=== PATIENT | male | born 1945 | race Two or more races ===

== ENCOUNTER 2021-04-18 13:33 | Inpatient (IN) | payer MEDICARE, MEDICAID, OTHER ==
[~2021-04-18] VITALS: Ht 175.3 cm; Wt 49.0 kg
[~2021-04-18 13:33] MED LIST: FINA5TAB11 PO; TAMS-11 PO
[2021-04-18] MEDS ORDERED: MORPHINE SULFATE 4 MG/ML CPJ (NOT FOR IM USE) IV STA (13:49)
[2021-04-18] MEDS ORDERED: SODIUM CHLORIDE 0.9% 1,000 ML IV ONE ×3 (15:30→18:15)
[2021-04-18 16:21] LABS: CHLORIDE 105 mEq/L (98-107)
[2021-04-18] MEDS ORDERED: INSULIN REGULAR (HUMULIN R) 300UNITS/3ML VIAL IV ONE (17:30)
[2021-04-18] MEDS ORDERED: DEXTROSE 50% WATER 50ML SYRINGE IV ONE (17:30)
[2021-04-18] MEDS ORDERED: HALOPERIDOL LACTATE 5MG/ML VIAL IM ONE (18:00)
[2021-04-18] MEDS ORDERED: MORPHINE SULFATE 4 MG/ML CPJ (NOT FOR IM USE) IV ONE (18:45)
[2021-04-18] MEDS ORDERED: HYDROMORPHONE HCL/PF 2MG/ML CPJ IV ONE (19:15)
[2021-04-18] MEDS ORDERED: NOREPINEPHRINE 8MG/250ML PMX 250 ML IV ONE (20:15)
[2021-04-18] MEDS ORDERED: PIPERACILLIN/TAZ 3.375G PREMIX 50 ML IV NR (20:15)
[2021-04-18] MEDS ORDERED: PIPERACILLIN/TAZOBACTAM 3.375GM/50ML PREMIX IV ONE (20:15)
[2021-04-18 21:42] LABS: HEMATOCRIT. 40.7 % (42.0-52.0); HEMOGLOBIN. 12.9 g/dL (14.0-18.0); MEAN CORPUSCULAR HEMOGLOBIN 32.3 pg (28.0-32.0); MEAN CORPUSCULAR VOLUME 101.9 fL (80.0-94.0); MEAN PLATELET VOLUME 7.9 fl (7.4-10.4); PLATELET 337 x1000/uL (130-400); RED CELL DISTRIBUTION WIDTH 15.9 % (11.6-14.6)
[2021-04-18] MEDS ORDERED: DOCUSATE SODIUM 100MG CAPSULE PO PRN (21:45)
[2021-04-18] MEDS ORDERED: DEXT 5%/0.45% NACL 1000ML 1,000 ML IV SCH (21:45)
[2021-04-18] MEDS ORDERED: IPRATROPIUM/ALBUTEROL 0.5-3(2.5)MG/3ML NEB HHN PRN (21:45)
[2021-04-18] MEDS ORDERED: CLONIDINE 0.1MG TABLET PO PRN (21:45)
[2021-04-18] MEDS ORDERED: PHENYLEPHRINE 100 MG in DEXT 5% WATER 240 ML IV PRN (21:45)
[2021-04-18] MEDS ORDERED: DIPHENHYDRAMINE 50MG/ML VIAL IV PRN (21:45)
[2021-04-18] MEDS ORDERED: ONDANSETRON HCL 4MG/2ML INJ IV PRN (21:45)
[2021-04-18] MEDS ORDERED: GUAIFENESIN 200MG/10ML SUGAR FREE UDC PO PRN (21:45)
[2021-04-18] MEDS ORDERED: ACETAMINOPHEN 325MG TABLET PO PRN (21:45)
[2021-04-18] MEDS ORDERED: LORAZEPAM 2MG/ML CPJ IV PRN (21:45)
[2021-04-18] MEDS ORDERED: PIPERACILLIN/TAZ 3.375G PREMIX 50 ML IV SCH (21:45)
[2021-04-18] MEDS ORDERED: HYDRALAZINE 20MG/ML VIAL IV PRN (21:45)
[2021-04-18] MEDS ORDERED: NOREPINEPHRINE 8MG/250ML PMX 250 ML IV PRN (21:45)
[2021-04-18] MEDS ORDERED: MAGNESIUM/ALUMINUM HYDROXIDE/SIMETHICONE 30ML UDC PO PRN (21:45)
[2021-04-18] MEDS ORDERED: HYDROCODONE/ACETAMINOPHEN 5/325MG TABLET PO PRN (21:45)
[2021-04-18] MEDS ORDERED: SODIUM CHLORIDE 0.9% INJ 3ML FLUSH IVF SCH (22:00)
[2021-04-18 22:13] LABS: PLATELET ESTIMATE NORMAL
[2021-04-18 23:34] VITALS: BP 160/60
[2021-04-18] MEDS: ENOXAPARIN 30MG/0.3ML SYR SUBCUT SCH (23:35)
[2021-04-18 23:49] VITALS: BP 168/88
[2021-04-18 23:55] VITALS: BP 160/60
[2021-04-19] VITALS (95 sets, daily range): BP systolic 74–195; BP diastolic 30–107
[2021-04-19] MEDS: MORPHINE SULFATE 2 MG/ML CPJ (NOT FOR IM USE) IV PRN ×3 (00:23→21:39)
[2021-04-19] MEDS: PHENYLEPHRINE 100 MG in DEXT 5% WATER 250 ML IV PRN (00:50)
[2021-04-19 06:05] LABS: HEMOGLOBIN. 13.3 g/dL (14.0-18.0); MEAN CORPUSCULAR HEMOGLOBIN 31.9 pg (28.0-32.0); MEAN CORPUSCULAR VOLUME 100.2 fL (80.0-94.0); RED BLOOD CELL COUNT 4.19 mill/uL (4.7-6.1); RED CELL DISTRIBUTION WIDTH 16.1 % (11.6-14.6)
[2021-04-19 06:11] LABS: CHLORIDE 111 mEq/L (98-107)
[2021-04-19] MEDS ORDERED: PIPERACILLIN/TAZOBACTAM 2.25G in DEXTROSE 5% WATER 50ML IV SCH (07:00)
[2021-04-19] MEDS ORDERED: DEXTROSE 50% WATER 50ML SYRINGE IV NR (07:30)
[2021-04-19] MEDS ORDERED: INSULIN REGULAR (HUMULIN R) 300UNITS/3ML VIAL IV NR (07:30)
[2021-04-19] MEDS ORDERED: SODIUM BICARBONATE 8.4% 1 MEQ/ML 50ML SYR IV NR (07:30)
[2021-04-19] MEDS ORDERED: NALOXONE HCL 0.4MG/ML VIAL IV PRN (08:00)
[2021-04-19] MEDS: PIPERACILLIN/TAZOBACTAM 2.25G in DEXTROSE 5% WATER 50ML IV SCH ×2 (08:11→15:42)
[2021-04-19 08:58] LABS: PLATELET 332 x1000/uL (130-400)
[2021-04-19 09:16] LABS: BG BASE EXCESS -6.1 mmol/L (-2.0-2.0); BG HCO3 ACT 19.1 mmol/L (22.0-26.0); BG METHEMOGLOBIN 0.3 % (0.0-1.5); BG OXYGEN SATURATION 95.9 % (92.0-98.5); BG OXYHEMOGLOBIN 93.7 % (94.0-97.0); BG PCO2 36.9 mmHg (35.0-45.0); BG PH 7.332 (7.350-7.450); BG SAMPLE SITE LEFT RADIAL; BG TOTAL HEMOGLOBIN 12.8 g/dL (12.0-18.0); BG VENT MODE NASAL CANNULA
[2021-04-19 10:06] LABS: HDL CHOLESTEROL 23 mg/dL (40-59)
[2021-04-19 10:14] LABS: LDL CHOLESTEROL 6 mg/dL (5-100)
[2021-04-19 12:42] LABS: CHLORIDE 113 mEq/L (98-107)
[2021-04-19 12:51] LABS: CREATINE KINASE 219 IU/L (39-308)
[2021-04-19 12:54] LABS: CREATINE KINASE MB FRACTION 5.6 ng/mL (0.5-3.6)
[2021-04-19] MEDS: DEXT 5%/0.9% NACL 1,000 ML IV SCH ×2 (13:01→20:16)
[2021-04-19 19:57] LABS: KETONES URINE NEGATIVE (NEGATIVE); LEUKOCYTE ESTERASE URINE 2+ (NEGATIVE); NITRITE URINE NEGATIVE (NEGATIVE); OCCULT BLOOD URINE 3+ (NEGATIVE); PH URINE 7.5 (4.5-8.0); PROTEIN URINE NEGATIVE (NEGATIVE); SPECIFIC GRAVITY URINE 1.008 (1.005-1.030); UROBILINOGEN URINE 0.2 E.U./dL (0.2-1.0)
[2021-04-19 19:58] LABS: CLARITY URINE CLOUDY (CLEAR); COLOR URINE RED (YELLOW)
[2021-04-19] MEDS: ENOXAPARIN 30MG/0.3ML SYR SUBCUT SCH (21:37)
[2021-04-19 22:00] LABS: PROSTRATE SPECIFIC AG TOTAL 31.52 ng/mL (0.0-4.0)
[2021-04-19 22:01] LABS: CARCINO EMBRYONIC ANTIGEN 2.7 ng/ml
[2021-04-19 22:42] LABS: CREATINE KINASE 188 IU/L (39-308)
[2021-04-19 22:43] LABS: CREATINE KINASE MB FRACTION 5.3 ng/mL (0.5-3.6)
[2021-04-20] VITALS (101 sets, daily range): BP systolic 30–151; BP diastolic 17–107
[2021-04-20] MEDS: PIPERACILLIN/TAZOBACTAM 2.25G in DEXTROSE 5% WATER 50ML IV SCH ×4 (00:41→20:59)
[2021-04-20] MEDS: DEXT 5%/0.9% NACL 1,000 ML IV SCH ×4 (03:12→21:35)
[2021-04-20 05:42] LABS: HEMATOCRIT. 33.9 % (42.0-52.0); HEMOGLOBIN. 10.9 g/dL (14.0-18.0); MEAN CORPUSCULAR HEMOGLOBIN 31.7 pg (28.0-32.0); MEAN CORPUSCULAR VOLUME 98.8 fL (80.0-94.0); MEAN PLATELET VOLUME 8.4 fl (7.4-10.4); PLATELET 252 x1000/uL (130-400); RED BLOOD CELL COUNT 3.43 mill/uL (4.7-6.1); RED CELL DISTRIBUTION WIDTH 15.7 % (11.6-14.6)
[2021-04-20 05:46] LABS: CHLORIDE 118 mEq/L (98-107)
[2021-04-20 05:56] LABS: PHOSPHORUS 2.5 mg/dL (2.5-4.9)
[2021-04-20 05:57] LABS: CREATINE KINASE 216 IU/L (39-308)
[2021-04-20 06:00] LABS: CREATINE KINASE MB FRACTION 5.6 ng/mL (0.5-3.6)
[2021-04-20] MEDS: MORPHINE SULFATE 2 MG/ML CPJ (NOT FOR IM USE) IV PRN ×2 (10:04→19:23)
[2021-04-20 10:13] LABS: PLATELET ESTIMATE NORMAL
[2021-04-20] MEDS: PHENYLEPHRINE 100 MG in DEXT 5% WATER 250 ML IV PRN (11:56)
[2021-04-20] MEDS ORDERED: SODIUM CHLORIDE 0.9% 500 ML IV ONE (14:00)
[2021-04-20] MEDS: NOREPINEPHRINE 8 MG in DEXTROSE 5% WATER 250 ML IV PRN (17:55)
[2021-04-20] MEDS: VASOPRESSIN 20 UNIT in SODIUM CHLORIDE 0.9% 99 ML IV PRN (19:42)
[2021-04-20 20:22] LABS: BG BASE EXCESS -5.4 mmol/L (-2.0-2.0); BG CARBOXYHEMOGLOBIN 1.7 % (0.5-1.5); BG DEOXYHEMOGLOBIN 0.1 % (0.0-5.0); BG FRACTION INSPIRED OXYGEN 100; BG HCO3 ACT 20.3 mmol/L (22.0-26.0); BG METHEMOGLOBIN 0.2 % (0.0-1.5); BG OXYGEN SATURATION 99.9 % (92.0-98.5); BG PCO2 40.4 mmHg (35.0-45.0); BG PH 7.319 (7.350-7.450); BG PO2 217.8 mmHg (75.0-100.0); BG SAMPLE SITE LEFT FEMORAL; BG VENT MODE MASK - SIMPLE
[2021-04-20] MEDS: ENOXAPARIN 30MG/0.3ML SYR SUBCUT SCH (21:00)
[2021-04-20] MEDS ORDERED: SODIUM CHLORIDE 0.9% 500 ML IV NR (23:00)
[2021-04-20] MEDS ORDERED: DIGOXIN 500MCG/2ML AMP IV NR (23:00)
[2021-04-21] VITALS (100 sets, daily range): BP systolic 55–192; BP diastolic 17–135
[2021-04-21] MEDS: MORPHINE SULFATE 2 MG/ML CPJ (NOT FOR IM USE) IV PRN ×2 (00:44→06:12)
[2021-04-21] MEDS: PHENYLEPHRINE 100 MG in DEXT 5% WATER 250 ML IV PRN ×2 (01:16→22:42)
[2021-04-21] MEDS: DEXT 5%/0.9% NACL 1,000 ML IV SCH ×2 (01:16→09:11)
[2021-04-21] MEDS: PIPERACILLIN/TAZOBACTAM 2.25G in DEXTROSE 5% WATER 50ML IV SCH ×4 (02:31→22:22)
[2021-04-21] MEDS: VASOPRESSIN 20 UNIT in SODIUM CHLORIDE 0.9% 99 ML IV PRN (02:36)
[2021-04-21 05:44] LABS: HEMATOCRIT. 31.8 % (42.0-52.0); HEMOGLOBIN. 9.8 g/dL (14.0-18.0); MEAN CORPUSCULAR VOLUME 103.8 fL (80.0-94.0); MEAN PLATELET VOLUME 8.8 fl (7.4-10.4); PLATELET 201 x1000/uL (130-400); RED BLOOD CELL COUNT 3.06 mill/uL (4.7-6.1); RED CELL DISTRIBUTION WIDTH 16.4 % (11.6-14.6)
[2021-04-21 05:50] LABS: CHLORIDE 122 mEq/L (98-107)
[2021-04-21] MEDS ORDERED: SODIUM BICARBONATE 8.4% 1 MEQ/ML 50ML SYR IV NR (07:30)
[2021-04-21] MEDS ORDERED: MIDAZOLAM HCL 100 MG in SODIUM CHLORIDE 0.9% 80 ML IV PRN (07:45)
[2021-04-21] MEDS ORDERED: VECURONIUM BROMIDE 10 MG/VIAL IV ONE (08:07)
[2021-04-21] MEDS ORDERED: ETOMIDATE 2MG/ML 10ML VIAL IV ONE (08:07)
[2021-04-21 09:44] LABS: INR 1.2; PROTHROMBIN TIME 12.8 sec (9.6-11.0)
[2021-04-21] MEDS ORDERED: DIPHENHYDRAMINE 50MG/ML VIAL IV NR (10:00)
[2021-04-21] MEDS ORDERED: VANCOMYCIN 1 G PREMIX 200 ML IV SCH (10:00)
[2021-04-21] MEDS ORDERED: METHYLPREDNISOLONE SOD SUCC 40 MG/ML VIAL IV SCH ×2 (11:15→20:00)
[2021-04-21] MEDS: FENTANYL CITRATE/PF 2,500 MCG in SODIUM CHLORIDE 0.9% 200 ML IV PRN (11:54)
[2021-04-21 12:15] LABS: BG BASE EXCESS -6.8 mmol/L (-2.0-2.0); BG CARBOXYHEMOGLOBIN 0.8 % (0.5-1.5); BG DEOXYHEMOGLOBIN 0.4 % (0.0-5.0); BG FRACTION INSPIRED OXYGEN 100; BG HCO3 ACT 18.5 mmol/L (22.0-26.0); BG METHEMOGLOBIN 0.3 % (0.0-1.5); BG OXYGEN SATURATION 99.6 % (92.0-98.5); BG OXYHEMOGLOBIN 98.5 % (94.0-97.0); BG PCO2 36.4 mmHg (35.0-45.0); BG PH 7.324 (7.350-7.450); BG PO2 355.3 mmHg (75.0-100.0); BG SAMPLE SITE RIGHT RADIAL; BG TOTAL HEMOGLOBIN 10.7 g/dL (12.0-18.0); BG VENT MODE VENT - AC
[2021-04-21] MEDS: DEXTROSE 5% WATER 1,000 ML IV SCH (15:15)
[2021-04-21] MEDS: IPRATROPIUM/ALBUTEROL 0.5-3(2.5)MG/3ML NEB HHN SCH ×2 (17:00→19:59)
[2021-04-21 18:41] LABS: PLATELET ESTIMATE NORMAL
[2021-04-21] MEDS: VANCOMYCIN 750 MG PREMIX 150 ML IV SCH (20:47)
[2021-04-21] MEDS: ENOXAPARIN 30MG/0.3ML SYR SUBCUT SCH (22:05)
[2021-04-22] VITALS (97 sets, daily range): BP systolic 64–131; BP diastolic 16–95
[2021-04-22] MEDS: PHENYLEPHRINE 100 MG in DEXT 5% WATER 250 ML IV PRN ×2 (01:30→16:56)
[2021-04-22] MEDS: IPRATROPIUM/ALBUTEROL 0.5-3(2.5)MG/3ML NEB HHN SCH ×4 (01:37→20:17)
[2021-04-22] MEDS ORDERED: METHYLPREDNISOLONE SOD SUCC 40 MG/ML VIAL IV SCH ×2 (02:00→08:00)
[2021-04-22] MEDS: PIPERACILLIN/TAZOBACTAM 2.25G in DEXTROSE 5% WATER 50ML IV SCH ×4 (03:47→20:39)
[2021-04-22] MEDS: DEXTROSE 5% WATER 1,000 ML IV SCH ×2 (04:00→15:43)
[2021-04-22 06:08] LABS: HEMATOCRIT. 31.1 % (42.0-52.0); HEMOGLOBIN. 9.9 g/dL (14.0-18.0); MEAN CORPUSCULAR HEMOGLOBIN 31.5 pg (28.0-32.0); MEAN CORPUSCULAR VOLUME 99.2 fL (80.0-94.0); MEAN PLATELET VOLUME 9.9 fl (7.4-10.4); PLATELET 153 x1000/uL (130-400); RED BLOOD CELL COUNT 3.14 mill/uL (4.7-6.1); RED CELL DISTRIBUTION WIDTH 15.8 % (11.6-14.6)
[2021-04-22 06:17] LABS: CHLORIDE 115 mEq/L (98-107)
[2021-04-22] MEDS ORDERED: DIPHENHYDRAMINE 50MG/ML VIAL IV SCH (08:00)
[2021-04-22] MEDS: VANCOMYCIN 750 MG PREMIX 150 ML IV SCH ×2 (08:02→20:59)
[2021-04-22 08:07] LABS: BG BASE EXCESS -3.7 mmol/L (-2.0-2.0); BG CARBOXYHEMOGLOBIN 1.9 % (0.5-1.5); BG DEOXYHEMOGLOBIN 1.2 % (0.0-5.0); BG METHEMOGLOBIN 0.2 % (0.0-1.5); BG OXYGEN SATURATION 98.8 % (92.0-98.5); BG OXYHEMOGLOBIN 96.7 % (94.0-97.0); BG PCO2 36.8 mmHg (35.0-45.0); BG PH 7.374 (7.350-7.450); BG PO2 123.2 mmHg (75.0-100.0); BG SAMPLE SITE RIGHT RADIAL; BG VENT MODE VENT - AC
[2021-04-22] MEDS ORDERED: IOHEXOL-300 100 ML BOTTLE ONE (09:49)
[2021-04-22] MEDS: NOREPINEPHRINE 8 MG in DEXTROSE 5% WATER 250 ML IV PRN (11:33)
[2021-04-22 11:51] LABS: NUCLEATED RED BLOOD CELLS 1 /100 WBC
[2021-04-22 11:52] LABS: PLATELET ESTIMATE NORMAL
[2021-04-22] MEDS ORDERED: ALBUMIN HUMAN 25GM/100ML (25%) IV ONE (13:22)
[2021-04-22] MEDS ORDERED: CALCIUM CHLORIDE 1GM/10ML SYR IV ONE (13:23)
[2021-04-22] MEDS ORDERED: ALBUMIN HUMAN 12.5GM/50ML (25%) IV ONE (13:24)
[2021-04-22] MEDS ORDERED: BACITRACIN/POLYMYXIN B SULFATE OINT 28.35GM TOP ONE (13:31)
[2021-04-22] MEDS ORDERED: METHYLENE BLUE 50 MG/10 ML AMP IV ONE (13:41)
[2021-04-22] MEDS: VASOPRESSIN 20 UNIT in SODIUM CHLORIDE 0.9% 99 ML IV PRN (21:36)
[2021-04-22] MEDS: ENOXAPARIN 30MG/0.3ML SYR SUBCUT SCH (22:06)
[2021-04-23] VITALS (100 sets, daily range): BP systolic 31–131; BP diastolic 14–104
[2021-04-23] MEDS: IPRATROPIUM/ALBUTEROL 0.5-3(2.5)MG/3ML NEB HHN SCH ×4 (00:44→19:53)
[2021-04-23] MEDS: PHENYLEPHRINE 100 MG in DEXT 5% WATER 250 ML IV PRN ×3 (02:42→21:25)
[2021-04-23] MEDS: PIPERACILLIN/TAZOBACTAM 2.25G in DEXTROSE 5% WATER 50ML IV SCH ×4 (02:49→20:44)
[2021-04-23] MEDS: FENTANYL CITRATE/PF 2,500 MCG in SODIUM CHLORIDE 0.9% 200 ML IV PRN (04:24)
[2021-04-23] MEDS: DEXTROSE 5% WATER 1,000 ML IV SCH (04:25)
[2021-04-23] MEDS: VASOPRESSIN 20 UNIT in SODIUM CHLORIDE 0.9% 99 ML IV PRN ×3 (04:35→23:43)
[2021-04-23 05:44] LABS: HEMATOCRIT. 30.4 % (42.0-52.0); HEMOGLOBIN. 9.3 g/dL (14.0-18.0); MEAN CORPUSCULAR HEMOGLOBIN 31.1 pg (28.0-32.0); MEAN CORPUSCULAR VOLUME 101.8 fL (80.0-94.0); MEAN PLATELET VOLUME 10.9 fl (7.4-10.4); PLATELET 105 x1000/uL (130-400); RED BLOOD CELL COUNT 2.99 mill/uL (4.7-6.1); RED CELL DISTRIBUTION WIDTH 16.3 % (11.6-14.6)
[2021-04-23 09:38] LABS: BG BASE EXCESS -8.8 mmol/L (-2.0-2.0); BG CARBOXYHEMOGLOBIN 2.1 % (0.5-1.5); BG DEOXYHEMOGLOBIN 2.6 % (0.0-5.0); BG FRACTION INSPIRED OXYGEN 30; BG HCO3 ACT 16.2 mmol/L (22.0-26.0); BG METHEMOGLOBIN 0.2 % (0.0-1.5); BG OXYGEN SATURATION 97.3 % (92.0-98.5); BG OXYHEMOGLOBIN 95.1 % (94.0-97.0); BG PCO2 31.4 mmHg (35.0-45.0); BG PO2 97.4 mmHg (75.0-100.0); BG SAMPLE SITE RIGHT RADIAL; BG TOTAL HEMOGLOBIN 9.5 g/dL (12.0-18.0); BG VENT MODE VENT - AC
[2021-04-23] MEDS ORDERED: SODIUM BICARBONATE 8.4% 1 MEQ/ML 50ML SYR IV NR (11:00)
[2021-04-23] MEDS ORDERED: SODIUM CHLORIDE 0.9% 500 ML IV ONE (11:30)
[2021-04-23 16:54] LABS: NUCLEATED RED BLOOD CELLS 2 /100 WBC; PLATELET ESTIMATE DECREASED
[2021-04-23] MEDS: NOREPINEPHRINE 8 MG in DEXTROSE 5% WATER 250 ML IV PRN (21:17)
[2021-04-24] VITALS (108 sets, daily range): BP systolic 30–158; BP diastolic 13–80
[2021-04-24] MEDS: IPRATROPIUM/ALBUTEROL 0.5-3(2.5)MG/3ML NEB HHN SCH ×2 (02:02→07:38)
[2021-04-24] MEDS: PIPERACILLIN/TAZOBACTAM 2.25G in DEXTROSE 5% WATER 50ML IV SCH ×2 (02:53→09:59)
[2021-04-24] MEDS ORDERED: DEXTROSE 50% WATER 50ML SYRINGE IV PRN (03:45)
[2021-04-24 04:13] LABS: BG BASE EXCESS -11.2 mmol/L (-2.0-2.0); BG CARBOXYHEMOGLOBIN 1.4 % (0.5-1.5); BG DEOXYHEMOGLOBIN 1.6 % (0.0-5.0); BG FRACTION INSPIRED OXYGEN 30; BG HCO3 ACT 16.6 mmol/L (22.0-26.0); BG METHEMOGLOBIN 0.2 % (0.0-1.5); BG OXYGEN SATURATION 98.4 % (92.0-98.5); BG OXYHEMOGLOBIN 96.8 % (94.0-97.0); BG PH 7.175 (7.350-7.450); BG PO2 143.3 mmHg (75.0-100.0); BG SAMPLE SITE RIGHT FEMORAL; BG TOTAL HEMOGLOBIN 8.7 g/dL (12.0-18.0); BG TOTAL RESPIRATORY RATE 24 b/min; BG VENT MODE VENT - AC
[2021-04-24] MEDS ORDERED: SODIUM BICARBONATE 8.4% 1 MEQ/ML 50ML SYR IV NR (04:30)
[2021-04-24] MEDS: PHENYLEPHRINE 100 MG in DEXT 5% WATER 250 ML IV PRN ×2 (06:34→15:58)
[2021-04-24] MEDS: SODIUM BICARBONATE 100 MEQ in SODIUM CHLORIDE 0.45% 1,000 ML IV SCH (07:46)
[2021-04-24] MEDS: VASOPRESSIN 20 UNIT in SODIUM CHLORIDE 0.9% 99 ML IV PRN ×2 (08:11→15:57)
[2021-04-24] MEDS ORDERED: SODIUM BICARBONATE 8.4% 1 MEQ/ML 50ML SYR IV SCH (08:15)
[2021-04-24] MEDS: EPINEPHRINE 10 MG in SODIUM CHLORIDE 0.9% 240 ML IV PRN ×5 (08:17→22:20)
[2021-04-24] MEDS ORDERED: SODIUM CHLORIDE 0.9% 500 ML IV SCH (08:30)
[2021-04-24] MEDS: NOREPINEPHRINE 8 MG in DEXTROSE 5% WATER 250 ML IV PRN ×2 (08:47→11:45)
[2021-04-24 08:53] LABS: BG BASE EXCESS -2.3 mmol/L (-2.0-2.0); BG CARBOXYHEMOGLOBIN 1.8 % (0.5-1.5); BG DEOXYHEMOGLOBIN 0.3 % (0.0-5.0); BG FRACTION INSPIRED OXYGEN 100; BG HCO3 ACT 22.4 mmol/L (22.0-26.0); BG METHEMOGLOBIN 0.2 % (0.0-1.5); BG OXYGEN SATURATION 99.7 % (92.0-98.5); BG OXYHEMOGLOBIN 97.7 % (94.0-97.0); BG PCO2 38.2 mmHg (35.0-45.0); BG PH 7.387 (7.350-7.450); BG PO2 485.7 mmHg (75.0-100.0); BG SAMPLE SITE RIGHT RADIAL; BG VENT MODE VENT - AC
[2021-04-24 11:06] LABS: PHOSPHORUS 4.2 mg/dL (2.5-4.9)
[2021-04-24] MEDS ORDERED: VANCOMYCIN 500 MG PREMIX 100 ML IV SCH (14:00)
[2021-04-24] MEDS: NOREPINEPHRINE 32 MG in DEXT 5% WATER 218 ML IV PRN (14:08)
[2021-04-24] MEDS ORDERED: AMIKACIN 500MG in SODIUM CHLORIDE 0.9% 100ML IV NR (16:00)
[2021-04-24] MEDS: MEROPENEM 1000MG in NORMAL SALINE 100ML IV SCH (16:38)
[2021-04-24] MEDS ORDERED: SODIUM POLYSTYRENE SULFONATE 15 G/60 ML BOT PR NR (17:00)
[2021-04-25] VITALS (51 sets, daily range): BP systolic 22–117; BP diastolic 13–86
[2021-04-25] MEDS: SODIUM BICARBONATE 100 MEQ in SODIUM CHLORIDE 0.45% 1,000 ML IV SCH (00:10)
[2021-04-25] MEDS: PHENYLEPHRINE 100 MG in DEXT 5% WATER 250 ML IV PRN ×2 (01:00→08:31)
[2021-04-25] MEDS: VASOPRESSIN 20 UNIT in SODIUM CHLORIDE 0.9% 99 ML IV PRN ×2 (01:04→09:49)
[2021-04-25] MEDS: EPINEPHRINE 10 MG in SODIUM CHLORIDE 0.9% 240 ML IV PRN (01:24)
[2021-04-25] MEDS: NOREPINEPHRINE 32 MG in DEXT 5% WATER 218 ML IV PRN (02:27)
[2021-04-25] MEDS: EPINEPHRINE 20 MG in SODIUM CHLORIDE 0.9% 480 ML IV PRN ×2 (04:17→10:16)
[2021-04-25] MEDS: MEROPENEM 1000MG in NORMAL SALINE 100ML IV SCH (04:21)
[2021-04-25 08:30] LABS: BG HCO3 ACT 11.5 mmol/L (22.0-26.0); BG PCO2 21.4 mmHg (35.0-45.0); BG PH 7.349 (7.350-7.450); BG PO2 456.7 mmHg (75.0-100.0); BG SAMPLE SITE RIGHT FEMORAL; BG TOTAL HEMOGLOBIN < 4.5 g/dL (12.0-18.0); BG VENT MODE VENT - AC
[2021-04-25] MEDS ORDERED: DEXTROSE 50% WATER 50ML SYRINGE IV NR (11:15)
[2021-04-25] MEDS ORDERED: INSULIN REGULAR (HUMULIN R) 300UNITS/3ML VIAL IV NR (11:15)
[2021-04-25] MEDS ORDERED: CALCIUM GLUCONATE 1GM PREMIX 50 ML IV NR (13:00)
== END 2021-04-25 12:21 | DRG 853 ==
LOC: ER 13:33 → MICUNO 20:08 → EDBEDREQSVC 20:11 → EDBEDREQTM 20:11 → ENRESERV 22:54 → MICUNO 04-19 19:18
PROVIDERS: ADMIT Internal Medicine; ATTEND Internal Medicine
PROC: 5A1945Z Respiratory Ventilation, 24-96 Consecutive Hours (ICD-10-PCS; principal; 2021-04-21)
PROC: 0BH17EZ Insertion of Endotracheal Airway into Trachea, Via Natural or Artificial Opening (ICD-10-PCS; 2021-04-21)
PROC: 0TQB0ZZ Repair Bladder, Open Approach (ICD-10-PCS; 2021-04-22)
PROC: 5A12012 Performance of Cardiac Output, Single, Manual (ICD-10-PCS; 2021-04-25)
DX: A41.9 Sepsis, unspecified organism (principal); G93.41 Metabolic encephalopathy; E43 Unspecified severe protein-calorie malnutrition; R65.21 Severe sepsis with septic shock; J96.00 Acute respiratory failure, unspecified whether with hypoxia or hypercapnia; K55.069 Acute infarction of intestine, part and extent unspecified; N17.0 Acute kidney failure with tubular necrosis; K56.609 Unspecified intestinal obstruction, unspecified as to partial versus complete obstruction; N12 Tubulo-interstitial nephritis, not specified as acute or chronic; E87.2 Acidosis; E87.0 Hyperosmolality and hypernatremia; R18.8 Other ascites; Z68.1 Body mass index [BMI] 19.9 or less, adult; E87.1 Hypo-osmolality and hyponatremia; Z66 Do not resuscitate; K80.20 Calculus of gallbladder without cholecystitis without obstruction; N18.9 Chronic kidney disease, unspecified; N28.1 Cyst of kidney, acquired; N32.89 Other specified disorders of bladder; N40.0 Benign prostatic hyperplasia without lower urinary tract symptoms; R13.10 Dysphagia, unspecified; R62.7 Adult failure to thrive; J43.9 Emphysema, unspecified; I12.9 Hypertensive chronic kidney disease with stage 1 through stage 4 chronic kidney disease, or unspecified chronic kidney disease; F17.210 Nicotine dependence, cigarettes, uncomplicated; E87.5 Hyperkalemia; E86.0 Dehydration; K74.60 Unspecified cirrhosis of liver; B95.2 Enterococcus as the cause of diseases classified elsewhere; R73.9 Hyperglycemia, unspecified; D53.9 Nutritional anemia, unspecified; K66.0 Peritoneal adhesions (postprocedural) (postinfection); Z20.822 Contact with and (suspected) exposure to COVID-19; E86.1 Hypovolemia; K59.09 Other constipation; E16.2 Hypoglycemia, unspecified; K57.30 Diverticulosis of large intestine without perforation or abscess without bleeding; Z91.041 Radiographic dye allergy status; I46.9 Cardiac arrest, cause unspecified
CPT/HCPCS: 36415; 36600; 71045; 74018; 74176; 74177; 80048; 80053; 80061; 80202; 81003; 82105; 82140; 82375; 82378; 82550; 82553; 82805; 82962; 83036; 83605; 83735; 83880; 84100; 84132; 84153; 84439; 84443; 84484; 85025; 85379; 86301; 86850; 86900; 87070; 87077; 87186; 87426; 93005; 93306; 94002; 94003; 94640; 99291; J0278; J0610; J1160; J1170; J1200; J1630; J1650; J1815; J2060; J2185; J2250; J2270; J2370; J2543; J2920; J3010; J3370; J3490; J7030; J7040; J7042; J7050; J7060; J7070; P9047; Q9967; Q9968; G0103